=== PATIENT | male | born 1960 | race Caucasian/White ===

== ENCOUNTER 2023-07-07 22:59 | Emergency (ER) | payer SELFPAY ==
[2023-07-07 23:02] VITALS: BP 113/83; PULSE 66; RESP 18; TEMP 36.8; O2SAT 99; BMI 28.7
--- NOTE | 2023-07-07 23:11 | ED.NURSE ---
pt ambulated to restroom. refused to give urine sample. pt ambulated back to room without difficulty.
--- NOTE | 2023-07-07 23:12 | ED.GENADULT ---
HPI - General Adult General Chief complaint: Alcohol/Intoxication Stated complaint: ETOH Time Seen by Provider: 07/07/23 23:01 History of Present Illness HPI narrative: CC: Alcohol Intoxication pt. has been driinking tonight. states he can find ride home. nobody was with him at [employer]. denies injury. 63-year-old man presenting to the emergency department via EMS. Apparently was at a festival and had been drinking. Reported to me that EMS was called to assess as had nobody with him. EMS brings to this department for additional assessment. There is no known injury. I see Mr. Hardy ambulating to and from the bathroom prior to my evaluation. While subtly unsteady and appearing to be intoxicated seemed to manage this without difficulty. He also denies any injury. Reports episodic drinking. Does not appear to be interested in any detox assistance. Has not been vomiting. No chest pain or shortness of breath. Related Data Home Medications Medication Instructions Recorded Confirmed duloxetine 60 mg capsule,delayed 60 mg PO DAILY 07/07/23 07/07/23 release fludrocortisone 0.1 mg tablet 0.1 mg PO BID 07/07/23 07/07/23 levothyroxine 150 mcg tablet 150 mcg PO DAILY 07/07/23 07/07/23 mirtazapine 7.5 mg tablet 7.5 mg PO QPM 07/07/23 07/07/23 paroxetine HCl 40 mg tablet 40 mg PO DAILY 07/07/23 07/07/23 prednisone 5 mg tablet 5 mg PO DAILY 07/07/23 07/07/23 Allergies Allergy/AdvReac Type Severity Reaction Status Date / Time No Known Drug Allergies Allergy Verified 07/07/23 23:06 Review of Systems Status of ROS: Reports: 6 or more systems reviewed and unremarkable except as noted in History and below [facility] Social History Non-prescribed substance use: denies use Exam Narrative: Exam Narrative: Blunted affect. Breathing easily. Subtly slurred speech. Eyes are injected. Head is atraumatic. Neck is supple nontender. Back also nontender without indication of injury. He is moving all extremities without difficulty with good strength. Cranial nerves 2-12 intact pupils are equal and appropriately responsive. Oropharynx without evidence of new injury. Abdomen is soft, full appears be nontender. Did not attempt to assess for HSM. Lower extremities are without edema. Extremities are generally well perfused. Heart RRR no MRG though somewhat distant. Const: Vital Signs, click to edit/add: Vital Signs - 24 hr 07/07/23 23:02 Temperature 98.2 F Pulse Rate [Right Pulse Oximeter] 66 Respiratory Rate 18 Blood Pressure [Ri ght Upper Arm] 113/83 Pulse Oximetry 99 Oxygen Delivery Me thod Room Air Documenting provider has reviewed patient's vital signs: yes Course Vital Signs Vital signs: Initial Vital Signs Temperature 98.2 F 07/07/23 23:02 Temperature Source Temporal Artery Scan 07/07/23 23:02 Pulse Rate 66 07/07/23 23:02 Respiratory Rate 18 07/07/23 23:02 Blood Pressure 113/83 07/07/23 23:02 Blood Pressure Mean 93 07/07/23 23:02 Blood Pressure Position Sitting 07/07/23 23:02 Pulse Oximetry 99 07/07/23 23:02 Oxygen Delivery Method Room Air 07/07/23 23:02 Vital Signs Temperature 98.2 F 07/07/23 23:02 Pulse Rate 66 07/07/23 23:02 Respiratory Rate 18 07/07/23 23:02 Blood Pressure 113/83 07/07/23 23:02 Pulse Oximetry 99 07/07/23 23:02 Oxygen Delivery Method Room Air 07/07/23 23:02 Temperature 97.6 F 07/08/23 08:35 Pulse Rate 75 07/08/23 08:35 Respiratory Rate 18 07/08/23 08:35 Blood Pressure 94/58 L 07/08/23 08:35 Pulse Oximetry 97 07/08/23 08:35 Oxygen Delivery Method Room Air 07/08/23 08:35 Medical Decision Making MDM Narrative Medical decision making narrative: Vitals noted. Clearly disinterested in being in the emergency department though not aggressively so. Is attempting to locate a ride. Appears to be walking talking supporting his own airway. Denies any other substance use. Does appear to be intoxicated with alcohol. Maintaining hydration. Anticipating discharging to a responsible adult. Discharge Plan Discharge Clinical Impression: Alcohol intoxication Patient Disposition: Home w/ Parent or Adult Condition: Stable Additional Instructions: I hope you had a nice afternoon. Please be careful with your drinking. Prescriptions: No Action fludrocortisone 0.1 mg tablet 0.1 mg PO BID duloxetine 60 mg capsule,delayed release(DR/EC) 60 mg PO DAILY prednisone 5 mg tablet 5 mg PO DAILY levothyroxine 150 mcg tablet 150 mcg PO DAILY paroxetine HCl 40 mg tablet 40 mg PO DAILY mirtazapine 7.5 mg tablet 7.5 mg PO QPM Stand Alone Forms: [employer] Info Instructions
--- NOTE | 2023-07-08 03:37 | ED.NURSE ---
pt ambulated to restroom and back to room.
[2023-07-08 08:35] VITALS: BP 94/58; PULSE 75; RESP 18; TEMP 36.4; O2SAT 97
--- NOTE | 2023-07-08 08:39 | ED.NURSE ---
is waiting for a ride. Coffee was given as requested. is alert and oriented.
== END 2023-07-08 09:00 | disposition home or self-care (01) ==
PROVIDERS: Emergency Provider Family Medicine
DX: F10.129 Alcohol abuse with intoxication, unspecified (principal)
CPT/HCPCS: 99282; 99283

== ENCOUNTER 2025-04-28 12:47 | Outpatient (CLI) | payer MEDICARE, SELFPAY ==
[2025-04-28 13:26] LABS: Creatinine* 0.7 mg/dL (0.5-1.5); Estimated Glomerular Filt Rate 102 ml/min
--- NOTE | 2025-04-28 13:30 | CRLHL7_ITS ---
For Patients: As a result of the Century Cures Act, medical imaging exams and procedure reports are released immediately into your electronic medical record. You may view this report before your referring provider. If you have questions, please contact your health care provider. INDICATION: Blood in stool. History of Hector`s disease. TECHNIQUE: CT abdomen and pelvis acquired with 92 cc of Isovue 370 IV contrast. COMPARISON: None. FINDINGS: Lower chest: Unremarkable. Liver: Unremarkable. Normal in size and attenuation. No suspicious masses. Gallbladder and bile ducts: Unremarkable. No stones or inflammation. No biliary dilatation. Pancreas: Unremarkable. No mass or inflammation. Spleen: Unremarkable. Normal in size. No masses. Adrenal glands: Atrophic/markedly diminutive bilateral adrenal glands. Kidneys: Unremarkable. No suspicious masses, stones, or hydronephrosis. GI tract: No obstruction; however, the colon is predominantly on the left side of the abdomen and the small bowel in the right-sided abdomen, consistent with malrotation. No evidence for appendicitis. Vasculature: Abdominal aorta is normal in caliber. Mesenteric arteries are patent. Inverse relationship of the superior mesenteric artery and vein. Lymph nodes: No lymphadenopathy. Peritoneum/Abdominal Wall: Unremarkable. No free air or significant free fluid. Pelvis: Unremarkable. Bones: Unremarkable for age. IMPRESSION: 1. No acute findings within the abdomen and pelvis. No diverticulosis. 2. Intestinal findings compatible with congenital malrotation. No bowel obstruction. 3. 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 Please note that all CT scans at this facility use dose modulation, iterative reconstruction, and/or weight-based dosing when appropriate to reduce radiation dose to as low as reasonably achievable. Dictated by Alcon Weeks MD @ 04/29/2025 1:03:15 AM (Electronically Signed)
== END 2025-04-28 12:48 | disposition home or self-care (01) ==
PROVIDERS: Visit Provider Family Medicine
DX: K92.1 Melena (principal); E27.9 Disorder of adrenal gland, unspecified; E27.1 Primary adrenocortical insufficiency
CPT/HCPCS: 36415; 74177; 82565; Q9967